=== PATIENT | male | born 1975 | race Caucasian/White ===

== ENCOUNTER 2016-02-24 16:27 | Emergency (ER) | payer SELFPAY ==
--- NOTE | 2016-02-24 16:58 | ERRECORD ---
[facility] EMERGENCY RECORD HPI TOOTHACHE (16:48 ABUS) CHIEF COMPLAINT: Patient presents for evaluation of toothache. HISTORIAN: History provided by patient, 40 yr old M here with right lower tooth pain that started 2-3 days ago and has been broken. He has been unable to get to a dentist to have ti pulled. denies any F, /V, D, Rash. LOCATION: Symptoms are localized, most severe to R lower inciser. QUALITY: Pain is dull in nature, described as aching. SEVERITY: Currently symptoms are mild. TIME COURSE: There has been no change in the patient's symptoms over time. ASSOCIATED WITH: No associated chills, No associated dysphagia, Associated with facial pain, No associated facial swelling, No associated fever, No associated recent dental procedure, No associated trauma, No associated vomiting. EXACERBATED BY: Patient's condition exacerbated by chewing. RELIEVED BY: Patient's condition relieved by nothing. ROS (16:49 ABUS) CONSTITUTIONAL: Negative constitutional review of systems, Historian denies chills, denies fever. ENT: Tooth pain, Historian denies rhinorrhea, Historian denies sore throat. CARDIOVASCULAR: Negative cardiovascular review of systems, Historian denies chest pain, denies palpitations. RESPIRATORY: Negative respiratory review of systems, Historian denies cough, denies shortness of breath. GI: Negative gastrointestinal review of systems, Historian denies abdominal pain, denies constipation, denies diarrhea, denies nausea, denies vomiting. MUSCULOSKELETAL: Negative musculoskeletal review of systems, Historian denies back pain, denies fall, denies injury, denies neck pain. SKIN: Negative skin review of systems, Historian denies rash, denies skin changes. NEUROLOGIC: Negative neurologic review of systems, Historian denies headache. PAST MEDICAL HISTORY (16:35 SFRE) MEDICAL HISTORY: No past medical history, Flu vaccine up to date, Date of immunization: 12/2015, Tetanus immunization up to date. MALE SURGICAL HISTORY: Patient has no surgical history. PSYCHIATRIC HISTORY: No previous psychiatric history. SOCIAL HISTORY: Patient denies alcohol use, Patient denies drug use, Patient has no smoking history. KNOWN ALLERGIES aspirin &a-1R&a+25V*p+0X*[id number]*c202B*c15G*c2P*p-0X&a-25V&a+1R Name: Martinez García : 1975 M40 MedRec: [id number] AcctNum: [id number] Prepared: Reilly Feb 24, 2016 17:02 by Interface Page 1 of 3 pMD [facility] EMERGENCY RECORD CURRENT MEDICATIONS No recorded medications VITAL SIGNS (16:31 SFRE) VITAL SIGNS: BP: 148/94 (Right Arm), Pulse: 82 (Regular), Resp: 18 (Non-Labored), Temp: 97.9 (Tympanic), Pain: 10 (Sharp), O2 sat: 99 on Room Air, Time: 02/24/2016 16:31. PHYSICAL EXAM (16:49 ABUS) CONSTITUTIONAL: Vital signs reviewed, Patient afebrile, Pulse normal, Blood pressure normal, Respiratory rate normal, Patient appears non toxic, Patient appears pain free, Patient alert and oriented to person, place and time. ENT: Ear exam normal, Nose exam normal, Pharynx exam normal, Uvula exam normal, midline, no edema, Tonsil exam normal, not enlarged, no exudates, Mouth exam normal, mucous membranes moist, no drooling, no lesions, no lacerations, no tongue elevation, Teeth with, dental caries, fractures, Right lower incisor. NECK: Neck exam normal, Neck exam included findings of normal range of motion, Trachea midline, no meningeal signs, no cervical adenopathy, no tenderness. RESPIRATORY CHEST: Respiratory and chest exam normal, Respiratory exam included findings of no respiratory distress, Breath sounds clear. CARDIOVASCULAR: Cardiovascular assessment normal, Cardiovascular exam included findings of heart rate regular rate and rhythm, Heart sounds normal. ABDOMEN MALE: Abdominal exam included findings of abdomen nontender, Bowel sounds normal, no distension, no mass, no pulsatile masses, no peritoneal signs, no rigidity, no guarding, no rebound, Rovsing's sign absent. BACK: Back exam normal, Back exam included findings of normal inspection, range of motion normal, no tenderness. NEURO: Neuro exam normal, Neuro exam findings include patient oriented to person, place and time, Speech normal, Gait normal. SKIN: Skin exam normal, Skin exam included findings of skin warm, dry, and normal in color, no rash. DOCTOR NOTES (16:50 ABUS) TEXT: 40 yr old M here with right lower tooth pain that started 2-3 days ago and has been broken. EXAM: Broken tooth with redness and swelling to the gum without presence of apparent abscess. DDX: Dental Caries, Fractured Tooth, Gingivitis, Peridontal Disease, Bacterial Pharyngitis, Viral Pharyngitis, Influenza, Viral URI, Oral Ulcers, Allergies, Allergic Rhinitis PLAN: Analgesics, Antibiotics and Peridex Final Dispo: D/C Home with referral to dentist referral, regular follow up and return precautions. All results of testing and &a-1R&a+25V*p+0X*b9119O*c202B*c15G*c2P*p-0X&a-25V&a+1R Name: Martinez García : 1975 M40 MedRec: [id number] AcctNum: [id number] Prepared: Reilly Feb 24, 2016 17:02 by Interface Page 2 of 3 pMD [facility] EMERGENCY RECORD evaluation were shared with the patient who verbalized understanding and agreement with the plan of care. Level of Complexity / Medical Decision Making: Low Moderate. PROBLEM LIST No recorded problems DIAGNOSIS (16:46 ABUS) FINAL: PRIMARY: Toothache, ADDITIONAL: Dental caries. PRESCRIPTION (16:45 ABUS) acetaminophen-codeine: TABLET : 300 mg-30 mg : ORAL : Quantity: 1 Unit: tab(s) Route: ORAL Schedule: every 6 hours PRN Dispense: 6 Unit: tab(s) May substitute. Refills: No Refills . NOTES: No Refills. Peridex: MOUTHWASH : 0.12 % : MUCOUS MEMBRANE : Quantity: 15 Unit: mL Route: MUCOUS MEMBRANE Schedule: 2 times a day Dispense: * May substitute. Refills: No Refills . NOTES: 1 bottle No Refills. Augmentin: TABLET : 875 mg-125 mg : ORAL : Quantity: 1 Unit: tab(s) Route: ORAL Schedule: 2 times a day Dispense: 14 Unit: tab(s) May substitute. Refills: No Refills . NOTES: No Refills. DISPOSITION PATIENT: Disposition Type: Discharge, Disposition: *Discharge Home, Condition: Good. (16:46 ABUS) Patient left the department. (16:56 PHILOMENAE) Anne: ABUS=MD Yessica, Nic SFRE=GEORGE Cobb, Alice &a-1R&a+25V*p+0X*[id number]*c202B*c15G*c2P*p-0X&a-25V&a+1R Name: Martinez García : 1975 M40 MedRec: [id number] AcctNum: [id number] Prepared: Reilly Feb 24, 2016 17:02 by Interface Page 3 of 3 pMD MTDD
--- NOTE | 2016-02-24 17:07 | PICIS ---
[facility] EMERGENCY RECORD TRIAGE (TueFeb 24, 2016 16:33 SFRE) PATIENT: NAME: Martinez García, AGE: 40, GENDER: male, : Sun 1975, TIME OF GREET: TueFeb 24, 2016 16:27, ECODE BILLING MAP: [facility], Zip Code: [address], KG WEIGHT: 66.22, PHONE: , , , PERSON ID: [id number], PCP: NO PCP. (TueFeb 24, 2016 16:33 SFRE) TRIAGE NOTES: TOOTH ACHE TO RIGHT BOTTOM. (TueFeb 24, 2016 16:33 SFRE) COMPLAINT: TOOTH PAIN. (TueFeb 24, 2016 16:33 SFRE) ADMISSION: URGENCY: 5 Fast Track, ADMISSION SOURCE: Home, TRANSPORT: Walk-in, BED: ED -04. (TueFeb 24, 2016 16:33 SFRE) ASSESSMENT: Symptoms began 02/23/2016, Symptoms began yesterday. (16:35 SFRE) PAIN: Patient complains of pain described as, sharp, shooting, stabbing, on a scale 0-10 patient rates pain as 10, Location RIGHT BOTTOM, Pain is constant, No aggravating factors, No relieving factors. (16:35 SFRE) IMMUNIZATIONS: Flu vaccine up to date, Date of immunization: 12/2015, Pneumococcal vaccine up to date. (16:35 SFRE) SIRS SCORING: Heart Rate 55-109 (0), Temp range 96.8-101.1 (0), respiratory rate 12-24 (0), Mental Status altered: no (0). (16:35 SFRE) TRIAGE SCREENING: Patient denies suicidal ideation, Patient denies presence of domestic violence. (16:35 SFRE) PROVIDERS: TRIAGE NURSE: Alice Cobb RN. (TueFeb 24, 2016 16:33 SFRE) VITAL SIGNS: BP 148/94, (Right Arm), Pulse 82, (Regular), Resp 18, (Non-Labored), Temp 97.9, (Tympanic), Pain 10, (Sharp), O2 Sat 99, on Room Air, Time 02/24/2016 16:31. (16:31 SFRE) KNOWN ALLERGIES aspirin CURRENT MEDICATIONS No recorded medications VITAL SIGNS (16:31 SFRE) VITAL SIGNS: BP: 148/94 (Right Arm), Pulse: 82 (Regular), Resp: 18 (Non-Labored), Temp: 97.9 (Tympanic), Pain: 10 (Sharp), O2 sat: 99 on Room Air, Time: 02/24/2016 16:31. NURSING ASSESSMENT: DENTAL (16:48 SFRE) CONSTITUTIONAL: Patient arrives ambulatory, Gait steady, History obtained from patient, Patient appears, Patient cooperative, Patient alert, Oriented to person, place and time, Skin warm, Skin dry, Skin normal in color, Mucous membranes pink, Mucous membranes moist, Patient is well-groomed, Patient complains of DENTAL PAIN. PAIN: sharp pain, shooting pain, &a-1R&a+25V*p+0X*x5845X*c202B*c15G*c2P*p-0X&a-25V&a+1R Name: Martinez García : 1975 M40 MedRec: [id number] AcctNum: [id number] Prepared: TueFeb 24, 2016 17:02 by Interface Page 1 of 5 pMD [facility] EMERGENCY RECORD stabbing pain, RIGHT BOTTOM TOOTH, Onset of pain 02/23/2016, constant, on a scale 0-10 patient rates pain as 10, Pain exacerbated by nothing, Nothing has been tried to alleviate the pain. DENTAL: Teeth abnormal:. SAFETY: Side rails up, Cart/Stretcher in lowest position, Call light within reach, Hospital ID band on. NURSING PROCEDURE: DISCHARGE NOTE (16:52 SFRE) DISCHARGE: Patient discharged to home, ambulating without assistance, driving self, unaccompanied, Summary of Care printed/ provided, Patient requested and was provided an electronic copy of Discharge Instructions, Discharge instructions given to patient, Simple or moderate discharge teaching performed, by GEORGE ALVAREZ, F/U WITH PCP. RX DIRECTED. RETURN TO ED NEEDED FOR NEW/CONCERNING OR WORSENING SYMPTOMS., Prescriptions given and instructions on side effects given, Name of prescription(s) given: T3, AUGMENTIN, PERIDEX, Above person(s) verbalized understanding of discharge instructions and follow-up care, Notes: PATIENT WAS GIVEN DISCOUNT RX CARDS AND INFO ON DENTISTS AND INFO ON [facility]. HPI TOOTHACHE (16:48 ABUS) CHIEF COMPLAINT: Patient presents for evaluation of toothache. HISTORIAN: History provided by patient, 40 yr old M here with right lower tooth pain that started 2-3 days ago and has been broken. He has been unable to get to a dentist to have ti pulled. denies any F, /V, D, Rash. LOCATION: Symptoms are localized, most severe to R lower inciser. QUALITY: Pain is dull in nature, described as aching. SEVERITY: Currently symptoms are mild. TIME COURSE: There has been no change in the patient's symptoms over time. ASSOCIATED WITH: No associated chills, No associated dysphagia, Associated with facial pain, No associated facial swelling, No associated fever, No associated recent dental procedure, No associated trauma, No associated vomiting. EXACERBATED BY: Patient's condition exacerbated by chewing. RELIEVED BY: Patient's condition relieved by nothing. ROS (16:49 ABUS) CONSTITUTIONAL: Negative constitutional review of systems, Historian denies chills, denies fever. ENT: Tooth pain, Historian denies rhinorrhea, Historian denies sore throat. CARDIOVASCULAR: Negative cardiovascular review of systems, Historian denies chest pain, denies palpitations. RESPIRATORY: Negative respiratory review of systems, Historian denies cough, denies shortness of breath. &a-1R&a+25V*p+0X*f6599V*c202B*c15G*c2P*p-0X&a-25V&a+1R Name: Martinez García : 1975 [facility] MedRec: [id number] AcctNum: [id number] Prepared: Reilly Feb 24, 2016 17:02 by Interface Page 2 of 5 pMD [facility] EMERGENCY RECORD GI: Negative gastrointestinal review of systems, Historian denies abdominal pain, denies constipation, denies diarrhea, denies nausea, denies vomiting. MUSCULOSKELETAL: Negative musculoskeletal review of systems, Historian denies back pain, denies fall, denies injury, denies neck pain. SKIN: Negative skin review of systems, Historian denies rash, denies skin changes. NEUROLOGIC: Negative neurologic review of systems, Historian denies headache. PAST MEDICAL HISTORY (16:35 SFRE) MEDICAL HISTORY: No past medical history, Flu vaccine up to date, Date of immunization: 12/2015, Tetanus immunization up to date. MALE SURGICAL HISTORY: Patient has no surgical history. PSYCHIATRIC HISTORY: No previous psychiatric history. SOCIAL HISTORY: Patient denies alcohol use, Patient denies drug use, Patient has no smoking history. PHYSICAL EXAM (16:49 ABUS) CONSTITUTIONAL: Vital signs reviewed, Patient afebrile, Pulse normal, Blood pressure normal, Respiratory rate normal, Patient appears non toxic, Patient appears pain free, Patient alert and oriented to person, place and time. ENT: Ear exam normal, Nose exam normal, Pharynx exam normal, Uvula exam normal, midline, no edema, Tonsil exam normal, not enlarged, no exudates, Mouth exam normal, mucous membranes moist, no drooling, no lesions, no lacerations, no tongue elevation, Teeth with, dental caries, fractures, Right lower incisor. NECK: Neck exam normal, Neck exam included findings of normal range of motion, Trachea midline, no meningeal signs, no cervical adenopathy, no tenderness. RESPIRATORY CHEST: Respiratory and chest exam normal, Respiratory exam included findings of no respiratory distress, Breath sounds clear. CARDIOVASCULAR: Cardiovascular assessment normal, Cardiovascular exam included findings of heart rate regular rate and rhythm, Heart sounds normal. ABDOMEN MALE: Abdominal exam included findings of abdomen nontender, Bowel sounds normal, no distension, no mass, no pulsatile masses, no peritoneal signs, no rigidity, no guarding, no rebound, Rovsing's sign absent. BACK: Back exam normal, Back exam included findings of normal inspection, range of motion normal, no tenderness. NEURO: Neuro exam normal, Neuro exam findings include patient oriented to person, place and time, Speech normal, Gait normal. SKIN: Skin exam normal, Skin exam included findings of skin warm, dry, and normal in color, no rash. &a-1R&a+25V*p+0X*u4917K*c202B*c15G*c2P*p-0X&a-25V&a+1R Name: Martinez García : 1975 M40 MedRec: [id number] AcctNum: [id number] Prepared: TueFeb 24, 2016 17:02 by Interface Page 3 of 5 pMD [facility] EMERGENCY RECORD EVENTS TRANSFER: Triage to Emergency Main ED -04. (16:33 SFRE) Emergency Main ED -04 to -03. (16:36 SFRE) Removed from Emergency Main ED -03. (16:56 SFRE) DOCTOR NOTES (16:50 ABUS) TEXT: 40 yr old M here with right lower tooth pain that started 2-3 days ago and has been broken. EXAM: Broken tooth with redness and swelling to the gum without presence of apparent abscess. DDX: Dental Caries, Fractured Tooth, Gingivitis, Peridontal Disease, Bacterial Pharyngitis, Viral Pharyngitis, Influenza, Viral URI, Oral Ulcers, Allergies, Allergic Rhinitis PLAN: Analgesics, Antibiotics and Peridex Final Dispo: D/C Home with referral to dentist referral, regular follow up and return precautions. All results of testing and evaluation were shared with the patient who verbalized understanding and agreement with the plan of care. Level of Complexity / Medical Decision Making: Low Moderate. PROBLEM LIST No recorded problems DIAGNOSIS (16:46 ABUS) FINAL: PRIMARY: Toothache, ADDITIONAL: Dental caries. DISPOSITION PATIENT: Disposition Type: Discharge, Disposition: *Discharge Home, Condition: Good. (16:46 ABUS) Patient left the department. (16:56 SFRE) INSTRUCTION (16:47 ABUS) DISCHARGE: TOOTH PAIN. FOLLOWUP: [facility], /[facility], [address] [place] [address], . SPECIAL: As discussed in the ED, please keep any upcoming appointments with your primary doctor or call the referral provided to you today to establish a follow up evaluation or ongoing medical care. Please come back if you start to have fever, vomiting, or any symptoms that concern you. Please call one of the dental resources provided to you here in the ED to have the tooth pulled and treated. PRESCRIPTION (16:45 ABUS) acetaminophen-codeine: TABLET : 300 mg-30 mg : ORAL : Quantity: 1 Unit: tab(s) Route: ORAL Schedule: every 6 hours PRN Dispense: 6 Unit: tab(s) May substitute. Refills: No Refills . NOTES: No Refills. Peridex: MOUTHWASH : 0.12 % : MUCOUS MEMBRANE : Quantity: 15 &a-1R&a+25V*p+0X*p0299I*c202B*c15G*c2P*p-0X&a-25V&a+1R Name: Martinez García : 1975 M40 MedRec: [id number] AcctNum: [id number] Prepared: TueFeb 24, 2016 17:02 by Interface Page 4 of 5 pMD [facility] EMERGENCY RECORD Unit: mL Route: MUCOUS MEMBRANE Schedule: 2 times a day Dispense: * May substitute. Refills: No Refills . NOTES: 1 bottle No Refills. Augmentin: TABLET : 875 mg-125 mg : ORAL : Quantity: 1 Unit: tab(s) Route: ORAL Schedule: 2 times a day Dispense: 14 Unit: tab(s) May substitute. Refills: No Refills . NOTES: No Refills. IMAGING *DISCHARGE INSTRUCTIONS RECEIPT: Image captured from scanner. (16:54 SFRE) *SUPPLY CHARGE SHEET: Image captured from scanner. (16:55 SFRE) ADMIN (16:53 ABUS) DIGITAL SIGNATURE: MD Juan Anthony. Anne: ABUS=MD Juan Anthony SFRE=GEORGE Cobb, Alice &a-1R&a+25V*p+0X*l6119N*c202B*c15G*c2P*p-0X&a-25V&a+1R Name: Martinez García : 1975 M40 MedRec: [id number] AcctNum: [id number] Prepared: TueFeb 24, 2016 17:02 by Interface Page 5 of 5 pMD MTDD
== END 2016-02-24 16:54 | disposition home or self-care (01) ==
LOC: MADERS 16:27
DX: K02.9 Dental caries, unspecified (principal)
CPT/HCPCS: 99282

== ENCOUNTER 2017-10-13 09:39 | Emergency (ER) | payer OTHER, SELFPAY ==
[2017-10-13] MEDS ORDERED: Ondansetron HCl/PF 4 MG/2 ML Vial ONE (09:49)
[2017-10-13] MEDS ORDERED: Ketorolac Tromethamine 30 MG/ML VIAL ONE (09:49)
[2017-10-13 10:08] LABS: #Basophils 0.1 thou/uL (0.0-0.2); #Eosinphils 0.1 thou/uL (0.0-0.7); #Lymphocytes 2.6 thou/uL (1.20-3.40); #Monocytes 0.9 thou/uL (0.11-0.59); #Neutrophils 9.5 thou/uL (1.40-6.50); %Eosinophils 0.6 % (0.0-10.0); %Lymphocytes 19.7 % (21.0-51.0); %Neutrophils 71.7 % (42.0-75.0); Hemoglobin 15.6 g/dL (14.0-18.0); Mean Corpuscular HGB CONC 33.1 g/dL (32.0-36.0); Mean Corpuscular Volume 87.7 fL (78.0-98.0); Mean Platelet Volume 7.1 fL (7.4-10.4); Platelet Count 346 thou/uL (130-400); RBC Distribution Width 12.3 % (11.5-14.5); White Blood Cell (WBC) Count 13.2 thou/uL (4.8-10.8)
[2017-10-13 10:22] LABS: Bilirubin Small (Negative); Blood, Urine Large (Negative); Clarity Slightly Cloudy (Clear); Glucose, Urine (Dipstick) Negative (Negative); Leukocyte Trace (Negative); Nitrite Negative (Negative); Protein, Urine (Dipstick) 100 mg/dL (Neg-Trace); Specific Gravity, Urine 1.015 (1.005-1.030)
[2017-10-13 10:25] LABS: pH, Urine Greater/Equal 9.0 (5.0-9.0)
[2017-10-13 10:27] LABS: ALT (SGPT) 19 U/L (8-55); AST (SGOT) 18 U/L (5-34); Albumin 4.6 g/dL (3.5-5.0); Alkaline Phosphatase 71 U/L (40-150); Anion Gap 19 mmol/L (10-20); BUN (Urea Nitrogen) 12 mg/dL (8.9-20.6); Bilirubin, Total 0.4 mg/dL (0.2-1.2); Calc. Creatinine Clearance 0 mL/min (70-130); Calcium 9.7 mg/dL (7.8-10.44); Carbon Dioxide 20 mmol/L (22-29); Chloride 106 mmol/L (98-107); Estimated GFR-MDRD 77; Globulin 3.2 g/dL (2.4-3.5); Glucose 101 mg/dL (70-105); Protein, Total 7.8 g/dL (6.0-8.3); Sodium 141 mmol/L (136-145)
[2017-10-13 10:28] LABS: RBC/HPF GREATER THAN 50-TNTC HPF (0-3); Squamous Epithelial 0-3 HPF (0-3); WBC/HPF 0-3 HPF (0-3)
[2017-10-13 10:29] LABS: Bacteria/HPF Rare-Few HPF (None Seen)
[2017-10-13 10:30] LABS: Amphetamine Not Detected (NotDetected); Barbiturates Screen Not Detected (NotDetected); Benzodiazepine Screen Not Detected (NotDetected); Cocaine Metabolite Screen Not Detected (NotDetected); Medtox Control Line Valid? VALID (VALID); Methadone Not Detected (NotDetected); Methamphetamine Not Detected (NotDetected); Opiate Screen Not Detected (NotDetected); Oxycodone Screen Not Detected (NotDetected); Phencyclidine (PCP) Not Detected (NotDetected); THC/Cannabinoid Screen Not Detected (NotDetected); Tricyclic Screen Not Detected (NotDetected)
--- NOTE | 2017-10-13 10:48 | CT ---
CT ABDOMEN AND PELVIS WITHOUT CONTRAST: Indication: Right sided flank pain. FINDINGS: There is a 2.4 mm stone within the distal right ureter, just proximal to the right UVJ, causing mild right hydronephrosis and hydroureter. There is a 3 mm nonobstructing calculus in the superior pole of the right kidney. Lung bases are clear. Unopacified liver is unremarkable. There is a small hiatal hernia. Unopacified adrenal glands and snachez creas appear within normal limits. Spleen is unremarkable. There is a normal appendix in the right lo wer quadrant. The bladder is decompressed. Unopacified colon and small bowel appear within normal da silva its. No definite acute osseous abnormality is evident. IMPRESSION: 1. 2.4 mm distal right ureteral calculus, just proximal the right UVJ, causing mild right hydronephro sis. 2. Right nephrolithiasis. 3. Small hiatal hernia. POS: [facility]
[2017-10-13] MEDS ORDERED: Sodium Chloride 0.9% 1,000 ML BAG ONE (12:13)
== END 2017-10-13 11:06 | disposition home or self-care (01) ==
LOC: MADERS 09:39
DX: N13.2 Hydronephrosis with renal and ureteral calculous obstruction (principal)
CPT/HCPCS: 74176; 80053; 80306; 81003; 81015; 85025; 96361; 96374; 96375; J1885; J2405; J7050

== ENCOUNTER 2017-10-29 15:14 | Emergency (ER) | payer OTHER ==
[2017-10-29 15:54] LABS: Bilirubin Negative (Negative); Blood, Urine Negative (Negative); Clarity Clear (Clear); Glucose, Urine (Dipstick) Negative (Negative); Leukocyte Negative (Negative); Nitrite Negative (Negative); Protein, Urine (Dipstick) Negative (Neg-Trace); Urobilinogen 0.2 mg/dL (0.2-1.0)
[2017-10-29 16:11] LABS: #Basophils 0.1 thou/uL (0.0-0.2); #Lymphocytes 1.5 thou/uL (1.20-3.40); #Monocytes 0.6 thou/uL (0.11-0.59); %Basophils 0.8 % (0.0-1.0); %Eosinophils 0.2 % (0.0-10.0); %Lymphocytes 13.5 % (21.0-51.0); %Monocytes 5.4 % (0.0-10.0); %Neutrophils 80.2 % (42.0-75.0); Hemoglobin 15.8 g/dL (14.0-18.0); Mean Corpuscular HGB CONC 33.2 g/dL (32.0-36.0); Mean Corpuscular Hemoglobin 30.3 pg (27.0-31.0); Mean Corpuscular Volume 91.3 fL (78.0-98.0); Mean Platelet Volume 7.3 fL (7.4-10.4); Platelet Count 328 thou/uL (130-400); RBC Distribution Width 12.1 % (11.5-14.5); White Blood Cell (WBC) Count 11.3 thou/uL (4.8-10.8)
[2017-10-29 16:26] LABS: ALT (SGPT) 21 U/L (8-55); AST (SGOT) 20 U/L (5-34); Albumin 4.5 g/dL (3.5-5.0); Alkaline Phosphatase 69 U/L (40-150); Anion Gap 15 mmol/L (10-20); BUN (Urea Nitrogen) 7 mg/dL (8.9-20.6); Bilirubin, Total 0.5 mg/dL (0.2-1.2); Calc. Creatinine Clearance 0 mL/min (70-130); Calcium 9.6 mg/dL (7.8-10.44); Carbon Dioxide 26 mmol/L (22-29); Chloride 107 mmol/L (98-107); Estimated GFR-MDRD 90; Globulin 3.3 g/dL (2.4-3.5); Glucose 85 mg/dL (70-105); Lipase 18 U/L (8-78); Potassium 4.5 mmol/L (3.5-5.1); Protein, Total 7.8 g/dL (6.0-8.3); Sodium 143 mmol/L (136-145)
== END 2017-10-29 17:00 ==
LOC: MADERS 15:14
DX: R10.30 Lower abdominal pain, unspecified (principal)
CPT/HCPCS: 36415; 80053; 81003; 83690; 85025; 99284